=== PATIENT | female | born 1990 | race Hispanic/Latino ===

== ENCOUNTER → 2019-11-21 08:49 | Outpatient (CLI) | payer SELFPAY ==
--- NOTE | 2019-11-21 08:55 | US_ITS ---
STUDY: FIRST TRIMESTER OBSTETRICAL ULTRASOUND REASON FOR EXAM: Female, 28 years old OB INITIAL DATING LMP: TECHNIQUE: Transabdominal and transvaginal TECHNICAL QUALITY: Adequate. PRIOR ULTRASOUND: None. FINDINGS: There is visualization of a single gestational sac in a normal intrauterine position. The mean sac diameter (MSD) measures 5.16 cm, indicating an estimated gestational age (EGA) of 11 weeks, 0 days. The gestational sac shape is within normal limits. There is a visualized yolk sac. The yolk sac measures 5.7 mm. The placenta is non-visualized. There is visualization of a live embryo. The crown-rump length (CRL) measures 5.59 cm, indicating an estimated gestational age (EGA) of 12 weeks, 0 days. There is demonstrated cardiac activity with a heart rate of 166 bpm. The estimated gestation age (EGA) by LMP is 11 weeks, 3 days. The estimated date of delivery (FRANKIE) by LMP is June 08, 2020. The estimated gestation age (EGA) by US is 11 weeks, 3 days. The estimated date of delivery (FRANKIE) by US is June 08, 2020. The uterus measures 11.5 x 9.9 x 5.2 cm. There is no demonstrated uterine fibroid. The cervix is closed. Normal ovaries are not visualized. There is no adnexal mass. There is no fluid in the cul de sac. US/Init OB < 14Wks US IMPRESSION: Viable intrauterine gestation approximately 11-12 weeks gestational age Electronically Signed: Derian Mann MD at 20:34 EDT , Service support ,
[2019-11-21 13:23] LABS: Amphetamine Urine VISTA NEGATIVE (<1000 ng/mL); Barbiturate Urine VISTA NEGATIVE (< 200 ng/mL); Benzodiazepine Urine VISTA NEGATIVE (< 200 ng/mL); Cocaine Urine VISTA NEGATIVE (< 300 ng/mL); Ecstacy Urine VISTA NEGATIVE (< 500 ng/mL); Methadone Urine VISTA NEGATIVE (< 300 ng/mL); PCP Urine VISTA NEGATIVE (< 25 ng/mL); THC Urine VISTA NEGATIVE (< 50 ng/mL); Vista UDS pH Range 6
[2019-11-21 15:32] LABS: Chlamydia Trachomatis by PCR Negative (Negative); Neisserai gonorrhoeae by PCR Negative (Negative); Probe Check PASS; Sample Adequacy Control PASS; Specimen Processing Control PASS
[2019-11-25 20:41] LABS: HPV Reflexed? NOT INDICATED
== END ==
PROVIDERS: Obstetrics & Gynecology; Referring Provider Nurse Practitioner Women's Health; Visit Provider Nurse Practitioner Women's Health
DX: Z34.80 Encounter for supervision of other normal pregnancy, unspecified trimester (principal); Z12.4 Encounter for screening for malignant neoplasm of cervix
CPT/HCPCS: 76801; 80307; 87086; 87491; 87591; 88175; G0145

== ENCOUNTER → 2019-12-22 14:21 | Outpatient (CLI) | payer SELFPAY ==
[2019-12-22 14:04] VITALS: BMI 25.0
[2019-12-22 14:34] LABS: Absolute Lymphocyte Count 1.06 X10^3/uL (0.83-4.51); Absolute Neutrophil Count 8.2 X10^3/uL (2.0-7.7); Basophil# 0.01 X10^3/uL; Basophil% 0.1 % (0-1); Eosinophil# 0.02 X10^3/uL; Eosinophils% 0.2 % (0-5); Hematocrit 37.9 % (37-47); Hemoglobin 12.5 g/dL (12.0-15.0); Lymphocyte # 1.06 X10^3/ul (4.0); Lymphocyte % 10.9 % (19-41); Mean Corpuscular Volume 90.9 fL (81-99); Mean Platelet Vol. 9.6 fl (6.2-12.0); Monocyte# 0.46 X10^3/uL; Monocyte% 4.7 % (0-10); NRBC Flagged by Analyzer 0 % (0-5); Neutrophil # 8.16 X10^3/uL (2.7-7.7); Neutrophil % 83.8 % (47-70); Platelet Count 277 K/mm3 (150-450); RBC Distribution Width CV 13.4 % (11.6-14.6); RBC Distribution Width SD 44.7 fl (35.1-43.9); Red Blood Count 4.17 M/mm3 (4.2-5.4); White Blood Count 9.7 K/mm3 (4.4-11.0)
[2019-12-22 15:36] LABS: HIV - WCH Non-Reactive (Nonreactive); Hepatitis B Surface Antigen Non-Reactive (Nonreactive); Hepatitis C Antibody Non-Reactive (Nonreactive); Rubella IgG 131.6 IU/mL
[2019-12-25 02:00] LABS: Rapid Plasmin Reagin (RPR) NONREACTIVE (NONREACTIVE)
== END ==
PROVIDERS: Referring Provider Obstetrics & Gynecology; Visit Provider Obstetrics & Gynecology
DX: Z34.80 Encounter for supervision of other normal pregnancy, unspecified trimester (principal)
CPT/HCPCS: 36415; 85025; 86592; 86703; 86762; 86803; 86850; 86900; 86901; 87340

== ENCOUNTER → 2020-01-23 07:33 | Outpatient (CLI) | payer SELFPAY ==
[2019-12-22 14:04] VITALS: BMI 25.0
--- NOTE | 2020-01-23 08:05 | US_ITS ---
STUDY: SECOND AND THIRD TRIMESTER OBSTETRICAL ULTRASOUND REASON FOR EXAM: Female, 29 years old anatomy LMP: 09/02/2019 TECHNIQUE: Transabdominal TECHNICAL QUALITY: Adequate. PRIOR ULTRASOUND: None. FINDINGS: There is a single intrauterine fetus. The fetus is in a cephalic presentation. There is demonstrated cardiac activity with a heart rate of 143 bpm. There is a normal amniotic fluid volume. The largest amniotic fluid pocket measures 3.6 cm. The placenta is posterior in location and is not low lying. There are Grade 1 placental changes. The cervix measures 4.9 cm in length. The bilateral adnexal regions are normal. BIOMETRY: BPD: 4.68 cm: 20 weeks, 1 days HC: 18.01 cm: 20 weeks, 3 days AC: 15.31 cm: 20 weeks, 3 days FL: 3.30 cm: 20 weeks, 2 days age by current US: 20 weeks, 3 days. FRANKIE by current US: 06/08/2020. Estimated weight: 352 grams, +/- 52 grams, 43.44 %. age by prior US: 20 weeks, 3 days. FRANKIE by prior US: 06/08/2020. Age by LMP: 20 weeks, 3 days. FRANKIE by LMP: 06/08/2020. ANATOMY: Gender: Male Cranium: Normal lateral ventricles. Normal choroid plexus. Normal cerebellum. Normal cisterna magna. Normal face, nose and lips. Chest: Normal 4-chamber heart. Abdomen/Pelvis: Normal diaphragm. Normal stomach. Normal abdominal wall. Normal cord insertion. Normal 3 vessel cord. Normal kidneys. Normal bladder. Spine: There is limited evaluation of the spine due to positioning, recommend short-term follow-up to assure normalcy. Normal sacrum. Extremities: Normal bilateral upper extremities. Normal bilateral lower extremities. US/OB Anatomy Scan IMPRESSION: Single live intrauterine at twenty weeks, three days by current ultrasound with FRANKIE of 06/08/2020. Heart rate of 143 bpm. No suspicious sonographic findings. Normal growth noted since the previous study. anatomy is sonographically normal, there is limited evaluation of the spine due to positioning, recommend short-term follow-up to assure normalcy Electronically Signed: Coy Segura MD at 13:17 EDT , Service support ,
== END ==
PROVIDERS: Referring Provider Obstetrics & Gynecology; Visit Provider Obstetrics & Gynecology
DX: Z34.80 Encounter for supervision of other normal pregnancy, unspecified trimester (principal)
CPT/HCPCS: 76805

== ENCOUNTER → 2020-03-19 08:08 | Outpatient (CLI) | payer SELFPAY ==
[2020-02-20 09:15] VITALS: BMI 25.0
[2020-03-19 08:34] LABS: Glucose Challenge Gest 1H 50g 116 mg/dL (70-140)
[2020-03-19 08:38] LABS: Absolute Neutrophil Count 5.6 X10^3/uL (2.0-7.7); Basophil# 0.04 X10^3/uL; Basophil% 0.6 % (0-1); Eosinophil# 0.03 X10^3/uL; Eosinophils% 0.4 % (0-5); Hematocrit 35.9 % (37-47); Hemoglobin 11.5 g/dL (12.0-15.0); Lymphocyte % 15.2 % (19-41); Mean Corpuscular Hgb 29.5 pg (27.0-32.0); Mean Corpuscular Volume 92.1 fL (81-99); Mean Platelet Vol. 9.6 fl (6.2-12.0); Monocyte# 0.39 X10^3/uL; Monocyte% 5.4 % (0-10); NRBC Flagged by Analyzer 0 % (0-5); Neutrophil # 5.64 X10^3/uL (2.7-7.7); Neutrophil % 77.8 % (47-70); Platelet Count 276 K/mm3 (150-450); RBC Distribution Width CV 13.3 % (11.6-14.6); RBC Distribution Width SD 45.2 fl (35.1-43.9); White Blood Count 7.2 K/mm3 (4.4-11.0)
== END ==
PROVIDERS: Referring Provider Obstetrics & Gynecology; Visit Provider Obstetrics & Gynecology
DX: Z34.80 Encounter for supervision of other normal pregnancy, unspecified trimester (principal); Z13.1 Encounter for screening for diabetes mellitus
CPT/HCPCS: 36415; 82950; 85025

== ENCOUNTER → 2020-04-30 13:22 | Outpatient (CLI) | payer SELFPAY ==
[2020-04-29 11:54] VITALS: BMI 25.7
--- NOTE | 2020-04-30 13:23 | US_ITS ---
STUDY: SECOND AND THIRD TRIMESTER OBSTETRICAL ULTRASOUND REASON FOR EXAM: Female, 29 years old growth -smaller than dates LMP: 09/02/2019 TECHNIQUE: Transabdominal TECHNICAL QUALITY: Adequate. PRIOR ULTRASOUND: 01/23/2020 FINDINGS: There is a single intrauterine fetus. The fetus is in a cephalic presentation. There is demonstrated cardiac activity with a heart rate of 150 bpm. There is a normal amniotic fluid volume. The largest amniotic fluid pocket measures 6.1 cm. The amniotic fluid index (MERLE) is 13.1 cm. The placenta is posterior in location and is not low lying. There are Grade 2 placental changes. The cervix measures 4.3 cm in length. The adnexal regions are not visualized. BIOMETRY: BPD: 8.7 cm: 35 weeks, 0 days HC: 31.5 cm: 35 weeks, 2 days AC: 29.4 cm: 33 weeks, 2 days FL: 6.6 cm: 33 weeks, 6 days CI: 80.28 FL/BPD: 75.96 FL/HC: 20.96 FL/AC: 22.49 HC/AC: 1.07 age by current US: 34 weeks, 2 days. FRANKIE by current US: 06/09/2020. Estimated weight: 2300 grams, +/- 340 grams, %. Age by LMP: 34 weeks, 3 days. FRANKIE by LMP: 06/09/2020. US/OB Limited With Biometrics IMPRESSION: Living intrauterine of 34 weeks 2 days as described above. Electronically Signed: Bryon Tavares MD at 10:10 EDT Tel , Service support ,
== END ==
PROVIDERS: Referring Provider Obstetrics & Gynecology; Visit Provider Obstetrics & Gynecology
DX: O26.843 Uterine size-date discrepancy, third trimester (principal); Z3A.34 34 weeks gestation of pregnancy
CPT/HCPCS: 76816

== ENCOUNTER → 2020-05-14 | Outpatient (CLI) | payer SELFPAY ==
[2020-05-14 08:50] VITALS: BMI 25.5
== END | disposition home or self-care (01) ==
LOC: LABSPEC 15:51
PROVIDERS: Referring Provider Obstetrics & Gynecology; Visit Provider Obstetrics & Gynecology
DX: Z34.80 Encounter for supervision of other normal pregnancy, unspecified trimester (principal)
CPT/HCPCS: 87081

== ENCOUNTER → 2020-06-04 | Outpatient (CLI) | payer MEDICARE, SELFPAY ==
[2020-05-14 08:50] VITALS: BMI 25.5
[2020-05-26 09:12] VITALS: BMI 26.2
== END | disposition home or self-care (01) ==
PROVIDERS: Referring Provider Obstetrics & Gynecology; Visit Provider Obstetrics & Gynecology
DX: U07.1 COVID-19 (principal)
CPT/HCPCS: 87635; C9803; U0003

== ENCOUNTER 2020-06-13 13:18 | Inpatient (IN) | payer SELFPAY ==
[2020-06-11 08:52] VITALS: BMI 26.0
[2020-06-13] VITALS (21 sets, daily range): BP systolic 102–132; BP diastolic 58–84; PULSE 62–106; RESP 15; TEMP 37.3–37.8; O2SAT 87–100; BMI 26.3
--- NOTE | 2020-06-13 13:18 | HP.PCM_ITS ---
- Problem List (1) Active labor at term Status: Acute (2) 37 weeks gestation of Status: Acute Comment: electronic test ordered 05/19/20 ( scheduled for 06/04/20 at 0955) (3) COVID-19 affecting , antepartum Status: Acute Comment: started baby ASA (4) Influenza vaccination declined Status: Acute (5) Status: Acute Qualifiers: Comment: declines genetic, carrier and NTD. anatomy us needs additional views of spine or AFP testing- patient declined both (6) Supervision of other normal Status: Acute Comment: PRR FRANKIE 06/08/2020 [facility]: Jerzy Spouse: Oral (7) UTI in Status: Acute Comment: treated with keflex 01/11. repeat neg (8) Uterine size date discrepancy Status: Acute Comment: Measuring 2 weeks small at visit. Growth 30%ile. History and Physical Date of Admission: 06/13/20 Intake Vital Signs 06/11/20 Height 5 ft 3 in 06/11/20 Weight: 147 lb 06/11/20 BMI 26.0 06/11/20 BP 102/84 H Intake Visit Reasons: 40WK OB Chief Complaint: est ob Clean Room Technician Required: No Is patient in pain?: No Allergies acetaminophen from Tylenol adverse Reaction (Verified 06/11/20 08:53) Nausea Medications Vits Prenatabs FA 1 tab PO DAILY 10/22/16 history Confirmed 06/11/20 Last Menstral Period: 09/02/19 Zika: Zika virus screening: Negative : No PFSH PFSH Medical History No significant past medical history (Acute) Surgical History Hx of tonsillectomy (Resolved) Social History (Updated 06/11/20 @ 09:[address] Reyna Velarde MD) adopted: No household members: family housing: house number of children: 1 pets and animals: Yes history of recent travel: No sexually active: Yes Smoking Status: Never smoker second hand exposure: No alcohol intake: current details: not while substance use type: does not use seatbelt use: always do you feel safe at home: Yes additional social history: [employer] [facility] [employer] in [place] Pregancy History 2 Elective abortions Hx Para 1 Spontaneous abortions Hx # Term Pregnancies Ectopic pregnancies Hx # Pregnancies Multiple births # of living children 1 Past Pregnancies Del. Date Name GA/Weeks Outcome Route Bth Weight Gen Labor Lgth Anesthesia Del Locatn Provider FOB Unknown 10/23/2016 Jerzy 40 live - full term 7lbs 6oz Male 12 hours epidural [facility] Dr. Rosaura Mixon Delivery Date: 1st degree laceration SalenaRamila HPI 40WK OB : Details: NEELA APODACA is a 29 year old G2, P1 at 40 weeks 5 days presents in active labor 5 cm dilated. Patient has had a complicated by Covid which symptoms started 3 weeks ago her positive test was on the fourth. Patient has been asymptomatic for almost a week. sHe has been taking a baby aspirin. OB Visit FRANKIE Calculator Estimated Delivery Date Method Current WG Current Estimate 06/08/20 LMP (Certain) 40w 3d Expected Delivery Route/Plan plan IOL 42 weeks Labor Preferences- labor support person: Oral pain management options preferred: prefers minimal intervention, open to epi dural. cut cord/dad catch: yes : yes PP control planned: NFP discussed possible routes of delivery and associated risks: discussed possible delivery modalities and possible indications for each including R/B/A of , VAVD, FAVD, and CS. questions answered. special requests: none Specific Issue/Plans flu vaccine: declines tdap vaccine: declines rhogam: NA LARC form signed: DECLINED 04/16 movement and labor precautions reviewed. Problem list reviewed and updated with the most current plan of care details and appropriate orders placed. Relevant counseling for the gestational age provided. Continue routine care and follow up unless otherwise noted in visit notes/problem list details Initial Weight: 125 lb Date EGA Weight BP Urine Prot Glucose FHR FuHt Pres Dilation Effaced St Visit Note 12/22/19 15w 6d 128 lb (+3 lb) 132/68 150 16 SM- no vb cramping doing well NOB labs to be drawn today 01/23/20 20w 3d 130 lb (+5 lb) 110/62 Negative Negative 145 20 SM- no vb cramping doing well had anatomy us today 02/20/20 24w 3d 133 lb 8 oz (+8 lb 8 oz) 120/60 Negative Negative 145 24 SM- no vb lof good fm no regular ctx given cbc gct info 03/19/20 28w 3d 136 lb 6 oz (+11 lb 6 oz) 116/66 Negative Negative 150 28 GP - no LOF, VB, DFM, ctx. Passed 1h GTT. declines TDAP/flu 04/16/20 32w 3d 140 lb (+15 lb) 110/70 Negative Negative 140 32 SM- no vb lof good fm no regualr ctx 04/29/20 34w 2d 145 lb 2 oz (+20 lb 2 oz) 108/80 Negative Negative 145 32 GP - no LOF, VB, DFM, reg ctx. Measuring small - growth ordered. Discussed routes of delivery. 05/14/20 36w 3d 144 lb 2 oz (+19 lb 2 oz) 112/74 Negative Negative 150 35 Cephalic 1 40 -2 GP - no LOF, VB, DFM, reg ular ctx. GBS done today. 05/21/20 37w 3d 146 lb (+21 lb) 124/74 Negative Negative 135 37 Cephalic GP - no LOF, VB, DFM, regular ctx. GBS negative. Declines SVE. 05/26/20 38w 1d 148 lb (+23 lb) 120/82 Negative Negative 135 37 Cephalic GP - no LOF, VB, DFM, ctx. Declines SVE. 06/11/20 40w 3d 147 lb (+22 lb) 102/84 Negative Negative 135 38 Cephalic 2 50 -2 SM- no vb lof good fm no regular ctx. discussed expectant management. SM- no vb lof good fm no regular ctx. discussed expectant management, declines ultrasound due to cost but discussed MERLE and twice weekly NSTs after 41 weeks ACOG First Trimester First Trimester: Desire for , Alcohol, Tobacco Cessation, Illicit/Recreational Drug/Substance Use, Intimate Partner Violence, Barriers to care, Unstable Housing, Communication Barriers, Environmental/Work Hazards, Anticipated Course of Care, Toxoplasmosis Precations, Use of Any medications, Sexual activity, Exercise, Dental Care, Sauna/Hot tub use, Seat Belt use, Childbirth classes/Hospital facilities, , Travel, Indications for US and Screening for Aneuploidy Second Trimester Second Trimester: Signs and Symptoms of Labor, Selecting a care provider, Reproductive Life Planning, Care Planning, Tobacco Cessation, Depression/Anxiety and Intimate Partner Violence Third Trimester Third Trimester: Pain Management Plans, Labor support person(s), Immediate Larc, Movement Monitoring and Infant Feeding Yes Breastfeed ing; discussed Trial of Labor after Counseling or discussed Circumcision preference Diagnostics Diagnostics Diagnostics Glucose 1 Hr 50 gm 116 mg/dL (70-140) 03/19/20 Hgb 11.5 g/dL (12.0-15.0) L 03/19/20 Hct 35.9 % (37-47) L 03/19/20 Details: HIV: Urine Culture: Sequential Screen: NIPT Screen: ROS Const Reports system reviewed and no additional complaints, except as docu Card Reports system reviewed and no additional complaints, except as docu Resp Reports system reviewed and no additional complaints, except as docu GI Reports system reviewed and no additional complaints, except as docu, Reports nausea Reports system reviewed and no additional complaints, except as docu Musc Reports system reviewed and no additional complaints, except as docu Exam Const General: cooperative, healthy appearing, comfortable, anxious HENMT Head: normal to inspection Nose: external nose normal Face and sinus: normal facial exam Neck Neck: normal visual inspection, full ROM, no lymphadenopathy Thyroid: thyroid normal Chest Chest palpation & inspection: normal inspection of the chest Resp Effort & Inspection: normal respiratory effort GI Inspection: normal to inspection Palpation: soft, other (gravid uterus) Other: vertex and appropriate size for gestational age Other: Cervical Exam: 80/-1 Extrem General: pedal edema Results POC Urinalysis 2 Dip (Clinic) Office Urine Glucose Negative Last Edit by Nohemi Camargo on 06/11/20 08:5 8 Office Urine Protein Negative Last Edit by Nohemi Camargo on 06/11/20 08:5 8 Assessment & Plan Problems 1. COVID-19 affecting , antepartum O98.519; U07.1 started baby ASA 2. 37 weeks gestation of Z3A.37 electronic test ordered 05/19/20 ( scheduled for 06/04/20 at 0955) 3. Uterine size date discrepancy O26.849 Measuring 2 weeks small at visit. Growth 30%ile. 4. Influenza vaccination declined Z28.21 5. UTI in O23.40 treated with keflex 01/11. repeat neg 6. Z34.90 declines genetic, carrier and NTD. anatomy us needs additional views of spine or AFP testing- patient declined both 7. Supervision of other normal Z34.80 PRR FRANKIE 06/08/2020 [facility]: Jerzy Spouse: Oral Patient presents IAL, plan expectant management for , pitocin/AROM PRN if needed. Pain management: Open to epidural prefers minimal intervention. GBS neg Management of any complications: None I have reviewed the [facility] and made any clinically relevant updates. Orders Orders: POC Urinalysis 2 Dip (Clinic) Today Coding Level of Care Code OB Routine Diagnoses COVID-19 affecting , antepartum O98.519; U07.1 37 weeks gestation of Z3A.37 Uterine size date discrepancy O26.849 Influenza vaccination declined Z28.21 UTI in O23.40 Z34.90 Supervision of other normal Z34.80
[2020-06-13 13:56] LABS: Absolute Lymphocyte Count 1.54 X10^3/uL (0.83-4.51); Absolute Neutrophil Count 13.9 X10^3/uL (2.0-7.7); Basophil# 0.04 X10^3/uL; Basophil% 0.2 % (0-1); Eosinophil# 0.02 X10^3/uL; Eosinophils% 0.1 % (0-5); Hemoglobin 13.3 g/dL (12.0-15.0); Lymphocyte # 1.54 X10^3/ul (4.0); Lymphocyte % 9.4 % (19-41); Mean Corp Hgb Conc 33.3 g/dL (32-36); Mean Corpuscular Hgb 29.7 pg (27.0-32.0); Mean Corpuscular Volume 89.3 fL (81-99); Mean Platelet Vol. 10.8 fl (6.2-12.0); Monocyte# 0.83 X10^3/uL; Monocyte% 5.1 % (0-10); NRBC Flagged by Analyzer 0 % (0-5); Neutrophil # 13.85 X10^3/uL (2.7-7.7); Neutrophil % 84.5 % (47-70); Platelet Count 294 K/mm3 (150-450); RBC Distribution Width CV 14.2 % (11.6-14.6); RBC Distribution Width SD 46.4 fl (35.1-43.9); Red Blood Count 4.48 M/mm3 (4.2-5.4); White Blood Count 16.4 K/mm3 (4.4-11.0)
[2020-06-13] MEDS: Lactated Ringers 500 ML 999 ML IV (14:08)
[2020-06-13] MEDS: Lactated Ringers 1,000 ML 50 ML IV (14:14)
[2020-06-13] MEDS: Ondansetron 4 MG/2 ML Vial IV (14:15)
[2020-06-13] MEDS: fentaNYL-bupivacaine (epidural) 100 ML BAG EPIDURAL (14:35)
[2020-06-13] MEDS: Oxytocin 30 units/NS 500 ml 30 UNITS/500 ML IV.SOLN 334 UNITS IV (15:02)
--- NOTE | 2020-06-13 15:11 | PCM.OPRPT ---
Problem List (1) Active labor at term Status: Acute (2) 37 weeks gestation of Status: Acute Comment: electronic test ordered 05/19/20 ( scheduled for 06/04/20 at 0955) (3) COVID-19 affecting , antepartum Status: Acute Comment: started baby ASA (4) Influenza vaccination declined Status: Acute (5) Status: Acute Qualifiers: Comment: declines genetic, carrier and NTD. anatomy us needs additional views of spine or AFP testing- patient declined both (6) Supervision of other normal Status: Acute Comment: PRR FRANKIE 06/08/2020 [facility]: Jerzy Spouse: Oral (7) UTI in Status: Acute Comment: treated with keflex 01/11. repeat neg (8) Uterine size date discrepancy Status: Acute Comment: Measuring 2 weeks small at visit. Growth 30%ile. Vaginal Delivery Maternal Presentation: Active Labor ial 40w5d Amniotic Membrane Rupture Type: Artificial Amniotic Fluid Description: Clear Final FRANKIE: 06/08/20 Gestational age: 40 Weeks and 5 Days Date of Procedure: 06/13/20 Pre-Operative Diagnosis: ial Post-Operative Diagnosis: same Surgery/ Procedure Performed: Spontaneous Vaginal Delivery Type of Anesthesia: Epidural Description of Procedure: Patient began pushing and delivered the head in the JASON presentation. The head was delivered atraumatically. The anterior and posterior shoulders delivered without complication followed by the rest of the and the infant was placed on the maternal abdomen. Delayed cord clamping was employed for approximately 60 seconds. Cord was clamped and cut and gentle traction was applied to the cord and the placenta delivered spontaneously immediately following it was noted to be intact with three-vessel cord. The perineum and vagina were inspected and noted to have a small 1st degree perineal laceration repaired in the usual fashion. EBL was 100 cc. Patient and tolerated delivery well. Presentation: JASON Placental Delivery Description: Spontaneous Placenta Disposition: [facility] Cord Vessel Description: 3 Vessels Cord Entanglement: None Estimated Blood Loss: 100 Infant A gender: Male Episiotomy Description: None Laceration: Perineal Extension/lac, 1st degree Medications given after delivery: IV Pitocin Complications: None Multi Select Codes - Urinary/Genital Urinary/Genital CPT Codes: 11990 Vaginal Delivery [facility]
[2020-06-13] MEDS: 0.9% Saline Lock 10 ML Syringe IV (18:28)
[2020-06-13] MEDS: Senna/Docusate Sodium 1 Tablet PO (18:29)
[2020-06-13] MEDS: Naproxen 250 MG Tablet 500 MG PO (23:51)
[2020-06-14] VITALS (9 sets, daily range): BP systolic 105–113; BP diastolic 58–72; PULSE 68–92; RESP 15–16; TEMP 36.4–36.9
--- NOTE | 2020-06-14 01:40 | DCINST_ITS ---
Discharge Diet: No Restrictions Discharge Activity: Return to Normal Activity, May not drive while taking narcotic pain medications., May Shower May resume sexual activity in: 4-6 weeks Call your doctor if your incision/area has: Continuous Slow Oozing, Sudden Increased Bleeding, Increased Pain/ Swelling, Increased Redness, Foul Smelling Discharge Additional Instructions: If you experience any of the following, contact your healthcare provider. * Bleeding that soaks a pad every hour for 2 hours * Fever 100.4 or higher * Unrelieved incision or abdominal pain * Swelling, redness, discharge or bleeding from your incision or episiotomy site * Your incision begins to separate * Problems urinating (including inability to urinate or burning while urinating). * Visual changes * Severe headache * Flu-like symptoms * Pain or redness in one of both of your breasts * Pain, warmth, tenderness or swelling in your legs, especially the calf area * Frequent nausea and vomiting * Symptoms of depression or anxiety If you experience any of the following, call 911 or go to the nearest Emergency Room. * Chest pain * Problems breathing * Seizure activity * Partial or complete paralysis of a body part, slurred speech, weakness or drooping of the face, or a sudden inability to walk or hold your balance Allergies/Adverse Reactions: Allergies acetaminophen [From Tylenol] Adverse Reaction (Verified 06/11/20 08:53) Nausea Medications to take at Discharge Vits [Prenatabs FA] 1 tab PO DAILY 10/22/16 Please Follow Up With: Reyna Velarde MD - [phone] When: Call to make an appointment with your doctor in 6 weeks. If you had elevated Blood pressure or 4th degree laceration you will need to be seen in 2 weeks. Primary Care Physician: Care Physician,No Primary [Primary Care Provider] - Test Results: Test results from this visit will be discussed in further detail at your follow- up appointment, if applicable.
--- NOTE | 2020-06-14 01:40 | PCM.DCVAG ---
Discharge Diet: No Restrictions Discharge Activity: Return to Normal Activity, May not drive while taking narcotic pain medications., May Shower May resume sexual activity in: 4-6 weeks Call your doctor if your incision/area has: Continuous Slow Oozing, Sudden Increased Bleeding, Increased Pain/ Swelling, Increased Redness, Foul Smelling Discharge Additional Instructions: If you experience any of the following, contact your healthcare provider. Bleeding that soaks a pad every hour for 2 hours Fever 100.4 or higher Unrelieved incision or abdominal pain Swelling, redness, discharge or bleeding from your incision or episiotomy site Your incision begins to separate Problems urinating (including inability to urinate or burning while urinating). Visual changes Severe headache Flu-like symptoms Pain or redness in one of both of your breasts Pain, warmth, tenderness or swelling in your legs, especially the calf area Frequent nausea and vomiting Symptoms of depression or anxiety If you experience any of the following, call 911 or go to the nearest Emergency Room. Chest pain Problems breathing Seizure activity Partial or complete paralysis of a body part, slurred speech, weakness or drooping of the face, or a sudden inability to walk or hold your balance Allergies/Adverse Reactions: Allergies acetaminophen [From Tylenol] Adverse Reaction (Verified 06/11/20 08:53) Nausea Medications to take at Discharge Vits [Prenatabs FA] 1 tab PO DAILY 10/22/16 Please Follow Up With: Reyna Velarde MD - [phone] When: Call to make an appointment with your doctor in 6 weeks. If you had elevated Blood pressure or 4th degree laceration you will need to be seen in 2 weeks. Primary Care Physician: Care Physician,No Primary [Primary Care Provider] - Test Results: Test results from this visit will be discussed in further detail at your follow-up appointment, if applicable.
[2020-06-14] MEDS: Senna/Docusate Sodium 1 Tablet PO (08:15)
--- NOTE | 2020-06-14 11:44 | PN.OBGYN_ITS ---
Patient Problems: Active and Suspected Problems (Last Reviewed 06/13/20 @ 13:10 by Maria Eugenia Harvey) Active labor at term (Acute) COVID-19 affecting , antepartum (Acute) started baby ASA 37 weeks gestation of (Acute) electronic test ordered 05/19/20 ( scheduled for 06/04/20 at 0955) Uterine size date discrepancy (Acute) Measuring 2 weeks small at visit. Growth 30%ile. Influenza vaccination declined (Acute) UTI in (Acute) treated with keflex 01/11. repeat neg (Acute) declines genetic, carrier and NTD. anatomy us needs additional views of spine or AFP testing- patient declined both Supervision of other normal (Acute) PRR FRANKIE 06/08/2020 [facility]: Jerzy Spouse: Oral Subjective: Patient doing well without complaints. Tolerating PO. Ambulating and voiding without difficulty. breast feeding well. Denies chest pain, shortness of breath, calf pain/swelling, fevers, chills, lightheadedness. - Physical Exam Vitals/I&O's: Vital Signs Temp Pulse Resp BP Pulse Ox 98.1 F 86 16 112/58 L 98 06/14/20 08:02 06/14/20 08:05 06/14/20 08:02 06/14/20 08:05 06/13/20 17:21 Oxygen Delivery Method Room Air Weight: 148 lb 8 oz Body Mass Index (BMI) 26.3 Intake and Output for Last 24 Hours 06/12/20 06/13/20 06/14/20 23:59 23:59 23:59 Intake Total 1340.00 / 1340.00 Output Total 830 / 830 Balance 510.00 / 510.00 General: Alert, Oriented x3 Laboratory Results 06/13/20 13:40: WBC 16.4 H, RBC 4.48, Hgb 13.3, Hct 40.0, MCV 89.3, MCH 29.7, MCHC 33.3, RDW Std Deviation 46.4 H, RDW Coeff of Estefany 14.2, Plt Count 294, MPV 10.8, Immature Gran % (Auto) 0.700, Neut % (Auto) 84.5 H, Lymph % (Auto) 9.4 L, [place] % (Auto) 5.1, Eos % (Auto) 0.1, Baso % (Auto) 0.2, Absolute Neuts (auto) 13.9 H, Absolute Lymphs (auto) 1.54, Nucleated RBC % 0 06/13/20 13:40: Blood Type O POSITIVE, Antibody Screen NEGATIVE Current Medications Bisacodyl (Bisacodyl 10 Mg Suppository) 10 mg RECTAL UD PRN PRN Reason: If no BM Dibucaine (Dibucaine 30 Gm Tube) 1 applic TOPICAL TID PRN PRN; Protocol PRN Reason: Discomfort Hydrocortisone (Hydrocortisone 2.5% Crm) 1 applic TOPICAL TID PRN PRN; Protocol PRN Reason: Discomfort Methylergonovine Maleate (Methylergonovine 0.2 Mg/Ml Ampul) 0.2 mg IM X1 PRN PRN Reason: Excess bleeding/uterine atony Naproxen (Naproxen 250 Mg Tablet) 500 mg PO Q8H PRN PRN PRN Reason: Pain Score 1-3 Last Admin: 06/13/20 23:51 Dose: 500 mg Documented by: Ondansetron HCl (Ondansetron 4 Mg/2 Ml Vial) 4 mg IV Q4H PRN PRN PRN Reason: Nausea Oxycodone HCl (Oxycodone 5 Mg Tablet) 5 - 10 mg PO Q4H PRN PRN PRN Reason: Pain Score 4-10 Senna/Docusate Sodium (Senna/Docusate Sodium 1 Tablet) 1 - 2 tablet PO DAILY PRN PRN PRN Reason: Constipation Last Admin: 06/14/20 08:15 Dose: 2 tablet Documented by: Simethicone (Simethicone 80 Mg Tablet) 80 mg PO PCHS PRN PRN Reason: Indigestion/Stomach pain Sodium Chloride (0.9% Saline Lock 10 Ml Syringe) 5 - 15 ml IV UD PRN PRN Reason: SALINE FLUSH Last Admin: 06/13/20 18:28 Dose: 10 ml Documented by: Medical Necessity - Tobacco Use Smoking Status: Never smoker Assessment/Plan All Active Problems (Last Reviewed 06/13/20 @ 13:10 by Maria Eugenia Harvey) Active labor at term (Acute) COVID-19 affecting , antepartum (Acute) 37 weeks gestation of (Acute) Uterine size date discrepancy (Acute) Influenza vaccination declined (Acute) UTI in (Acute) (Acute) Supervision of other normal (Acute) 40 weeks gestation of (Resolved) s/p PPD # 1 1. routine post delivery care 2. breast feeding- support given 3. rh positive 4. rubella immune
== END 2020-06-14 16:30 | disposition home or self-care (01) | DRG 805 ==
LOC: WPOUT 13:19 → WP 13:19
PROVIDERS: Admitting Provider Obstetrics & Gynecology; Visit Provider Obstetrics & Gynecology
DX: O98.52 Other viral diseases complicating childbirth (principal); U07.1 COVID-19; Z37.0 Single live birth; O23.42 Unspecified infection of urinary tract in pregnancy, second trimester; O26.843 Uterine size-date discrepancy, third trimester; O70.0 First degree perineal laceration during delivery; Z3A.40 40 weeks gestation of pregnancy; Z28.21 Immunization not carried out because of patient refusal
CPT/HCPCS: 59025; 59050; 85025; 86850; 86900; 86901; 99218; J7120; A4216; G0378; J2405